=== PATIENT | female | born 1930 | race Two or more races ===

== ENCOUNTER 2020-07-19 17:01 | Emergency (ER) | payer OTHER ==
[~2020-07-19] VITALS: Ht 152.4 cm; Wt 54.9 kg
[~2020-07-19 17:01] MED LIST: ATEN25TA PO
--- NOTE | 2020-07-19 17:07 | NUR ---
dona, from home, c/o GI bleed x 4 days, BS 117, to ER bed 1, hooked to monitor, changed to hosp gown, warm blanket provided, patient aao X0, respirations even and unlabored. awaiting MD bosch
--- NOTE | 2020-07-19 17:22 | NUR ---
[employer] DEVICE REPAIRER AT BEDSIDE
[2020-07-19 17:41] LABS: BASOPHILS # (AUTO) 0.1 /CMM (0.0-0.2); BASOPHILS % (AUTO) 1.2 % (0.0-2.0); EOSINOPHILS % (AUTO) 0.8 % (0.0-6.0); HEMATOCRIT 34 % (33-45); HEMOGLOBIN 10.9 g/dL (11.5-14.8); LYMPHOCYTES # (AUTO) 2.4 /CMM (0.8-4.8); LYMPHOCYTES % (AUTO) 33.2 % (20.0-44.0); MEAN CORPUSCULAR HGB CONC 33 g/dl (31.0-36.0); MEAN CORPUSCULAR VOLUME 99 fL (82-100); MONOCYTES # (AUTO) 0.6 /CMM (0.1-1.30); NEUTROPHILS % (AUTO) 55.8 % (43.0-81.0); PLATELET COUNT (AUTO) 191 /CMM (150-450); RED BLOOD CELL COUNT(AUTO) 3.39 MIL/uL (4.0-5.2); WHITE BLOOD COUNT (AUTO) 7.1 K/uL (4.3-11.0)
[2020-07-19] MEDS ORDERED: CITA10TA17 PO (17:51)
[2020-07-19] MEDS ORDERED: SENN-175 PO (17:51)
[2020-07-19] MEDS ORDERED: POLY17PO4 PO (17:51)
[2020-07-19] MEDS ORDERED: ATOR10TA PO (17:51)
[2020-07-19] MEDS ORDERED: HYOS-27 PO (17:51)
[2020-07-19] MEDS ORDERED: LORA-259 PO (17:51)
[2020-07-19] MEDS ORDERED: HALO0.5T2 PO (17:51)
[2020-07-19] MEDS ORDERED: ONDA-97 PO (17:51)
[2020-07-19] MEDS ORDERED: MORP10SY PO (17:51)
[2020-07-19] MEDS ORDERED: BISA10SU11 RC (17:51)
[2020-07-19] MEDS ORDERED: ACET325T53 PO (17:51)
[2020-07-19] MEDS ORDERED: DABI110C PO (17:51)
[2020-07-19] MEDS ORDERED: ATEN25TA PO (17:51)
[2020-07-19 17:56] LABS: ALBUMIN 2.9 g/dL (3.4-5.0); BILIRUBIN,DIRECT 0.2 mg/dL (0.0-0.2); BILIRUBIN,TOTAL 0.7 mg/dL (0.2-1.0); CALCIUM, SERUM 9.3 mg/dL (8.5-10.1); CREATININE 1.1 mg/dL (0.6-1.3); POTASSIUM 3.1 mmol/L (3.5-5.1); TOTAL PROTEIN, SERUM 6.3 g/dL (6.4-8.2)
--- NOTE | 2020-07-19 18:12 | NUR ---
CALLED CAROLYN DAUGHTER [phone]. YI SPEAKING WITH DAUGHTER.
--- NOTE | 2020-07-19 18:25 | NUR ---
CALLED [facility] [phone]
[2020-07-19] MEDS ORDERED: IV NS 0.9% 500 ML BAG IV ONE (18:30)
--- NOTE | 2020-07-19 18:45 | NUR ---
RAPID COVID SWAB DONE AND SENT TO LAB
--- NOTE | 2020-07-19 19:05 | NUR ---
REPORT GIVEN TO NICKO JONES FOR ALYCIA
--- NOTE | 2020-07-19 19:05 | NUR ---
REC'D REPORT FROM ROBERT RAMIREZ FOR ALYCIA
--- NOTE | 2020-07-19 19:28 | NUR ---
DR. RICHMOND ON PHONE WITH DR. DAVID.
[2020-07-19] MEDS ORDERED: IV PREMIX 0.45% NS + KCL 1,000 ML IV ONE ×2 (19:30→20:09)
--- NOTE | 2020-07-19 19:40 | NUR ---
ATTEMPTED TO REACH PHARMACY FOR MEDICATION REFILL. MEDICATION ORDER GIVEN TO [employer]
--- NOTE | 2020-07-19 20:26 | NUR ---
PER NELL ROTHMAN EPRP , PT ACCEPTED AT [facility]. PENDING BED.
--- NOTE | 2020-07-19 21:45 | NUR ---
PT GOING TO [facility] UNDER THE CARE OF DR. ARAUJO. PT GOING TO [id number]. CALL [phone]. ALS TRANSPORT [facility]IA [facility], ETA @ [phone].
--- NOTE | 2020-07-19 21:56 | NUR ---
GAVE REPORT TO ROBERT CAGLE FOR ALYCIA
[2020-07-19 22:19] VITALS: BP 154/75
--- NOTE | 2020-07-19 22:19 | NUR ---
GAVE REPORT TO EMS AND TRANSFER DOCUMENTATION.
== END 2020-07-19 22:19 | disposition short-term general hospital (02) ==
LOC: ER 17:03
DX: K92.2 Gastrointestinal hemorrhage, unspecified (principal); D64.9 Anemia, unspecified; R62.7 Adult failure to thrive; Z68.23 Body mass index [BMI] 23.0-23.9, adult; E87.6 Hypokalemia; E86.0 Dehydration; K64.4 Residual hemorrhoidal skin tags; G30.9 Alzheimer's disease, unspecified; F02.80 Dementia in other diseases classified elsewhere, unspecified severity, without behavioral disturbance, psychotic disturbance, mood disturbance, and anxiety; I10 Essential (primary) hypertension; Z85.038 Personal history of other malignant neoplasm of large intestine; Z88.8 Allergy status to other drugs, medicaments and biological substances; Z79.899 Other long term (current) drug therapy; R79.89 Other specified abnormal findings of blood chemistry; R94.31 Abnormal electrocardiogram [ECG] [EKG]; Z20.822 Contact with and (suspected) exposure to COVID-19
CPT/HCPCS: 36415; 80048; 80076; 83690; 85025; 85730; 87426; 93005; 96365; 99285; C9803; J7040